=== PATIENT | female | born 1985 | race Caucasian/White ===

== ENCOUNTER 2017-03-24 19:23 | Emergency (ER) | payer OTHER | END 2017-03-24 21:35 | disposition home or self-care (01) | LOC: ER 19:23 | PROC: 2W3RX1Z Immobilization of Left Lower Leg using Splint (ICD-10-PCS; principal; 2017-03-24) | DX: S83.92XA Sprain of unspecified site of left knee, initial encounter (principal); V86.99XA Unspecified occupant of other special all-terrain or other off-road motor vehicle injured in nontraffic accident, initial encounter | CPT/HCPCS: 73560-LT; 96372; 99283; J1170 ==